=== PATIENT | female | born 1970 | race African-American/Black ===

== ENCOUNTER 2020-02-23 07:03 | Emergency (ER) | payer SELFPAY ==
[~2020-02-23] VITALS: Ht 157.5 cm; Wt 59.0 kg
--- NOTE | 2020-02-23 07:27 | Emergency Department Note ---
History of Present Illnes History of Present Illness Chief Complaint: Skin Rash or Abscess History of Present Illness This is a 49 year old female c/o bruise to left thigh unknown how it happened and c/o rash and itching. Historian: Patient Arrival Mode: Car Slide Fasteners Inspector Required: No Onset (how long ago): week(s) Location: skin Quality: itching Radiation: Reports non-radiation Severity: mild Onset quality: gradual Timing of current episode: constant Progression: unchanged Chronicity: recurrent Context: Denies recent illness Relieving factors: none Exacerbating factors: none Associated symptoms: Reports denies other symptoms Treatments prior to arrival: none Past Medical/Family History Physician Review I have reviewed the patient's past medical and family history. Any updates have been documented here. Past Medical History Recent Fever: No Clinical Suspicion of Infectio: No New/Unexplained Change in Ment: No Past Medical History: Hypertension, Anxiety, Depression Past Surgical History: Social History Smoking Cessation: Current every day smoker Counseling Performed: Yes Alcohol Use: None Any Illegal Drug Use: Yes (marijuana) TB Exposure/Symptoms: No Physically hurt or threatened: No Family History Family history of heart diseas: No Other Any Pre-Existing Lines (PICC,: No Review of Systems Review of Systems Constitutional: Reports no symptoms EENTM: Reports no symptoms Cardiovascular: Reports no symptoms Respiratory: Reports no symptoms Gastrointestinal: Reports no symptoms Genitourinary: Reports no symptoms Musculoskeletal: Reports no symptoms Integumentary: Reports as per HPI Neurological: Reports no symptoms Psychological: Reports no symptoms Endocrine: Reports no symptoms Hematological/Lymphatic: Reports no symptoms Physical Exam Related Data Allergies: Coded Allergies: No Known Allergies (Unverified , 02/23/20) Triage Vital Signs Vital Signs Date Time Temp Pulse Resp B/P (MAP) Pulse Ox O2 Delivery O2 Flow Rate FiO2 02/23/20 07:06 98.6 84 18 145/85 100 Room Air Vital signs reviewed: Yes Physical Exam CONSTITUTIONAL Constitutional: Present well-developed, Present well-nourished HENT HENT: Present normocephalic, Present atraumatic, Present oropharynx clear/moist, Present nose normal HENT L/R: Present left ext ear normal, Present right ext ear normal EYES Eyes: Reports PERRL, Reports conjunctivae normal NECK Neck: Present ROM normal PULMONARY Pulmonary: Present effort normal, Present breath sounds normal CARDIOVASCULAR Cardiovascular: Present regular rhythm, Present heart sounds normal, Present capillary refill normal, Present normal rate GASTROINTESTINAL Abdominal: Present soft, Present nontender, Present bowel sounds normal GENITOURINARY Genitourinary: Present exam deferred SKIN Skin: Present warm, Present dry, Present other (minimal macular rash on back with a few excoriations, smal 1 cm ecchymoses on anterior left thigh) MUSCULOSKELETAL Musculoskeletal: Present ROM normal NEUROLOGICAL Neurological: Present alert, Present oriented x 3, Present no gross motor or sensory deficits PSYCHOLOGICAL Psychological: Present mood/affect normal Assessment & Plan Medical Decision Making MDM no emergency, will give Atarax Rx Reassessment Reassessment DC HOME, ATARAX 25MG - 1-2PO Q6HR PRN ITCHING OR ANXIETY (#40) Assessment & Plan Final Impression: (1) Dermatitis Depart Disposition: HOME, SELF-CARE Last Vital Signs Date Time Temp Pulse Resp B/P (MAP) Pulse Ox O2 Delivery O2 Flow Rate FiO2 02/23/20 07:06 98.6 84 18 145/85 100 Room Air LORETA FERNANDEZ MD Feb 23, 2020 07:27
== END 2020-02-23 07:24 | disposition home or self-care (01) ==
LOC: ER 07:22
DX: L30.9 Dermatitis, unspecified (principal); I10 Essential (primary) hypertension; F41.9 Anxiety disorder, unspecified; F32.9 Major depressive disorder, single episode, unspecified; F17.210 Nicotine dependence, cigarettes, uncomplicated
CPT/HCPCS: 99282

== ENCOUNTER 2020-07-21 11:38 | Emergency (ER) | payer OTHER ==
[~2020-07-21] VITALS: Ht 157.5 cm; Wt 59.0 kg
== END 2020-07-21 12:33 | disposition home or self-care (01) ==
LOC: ER 11:58
DX: Z76.0 Encounter for issue of repeat prescription (principal); I10 Essential (primary) hypertension; F41.9 Anxiety disorder, unspecified; F32.9 Major depressive disorder, single episode, unspecified
CPT/HCPCS: 99282